=== PATIENT | male | born 1965 | race Caucasian/White ===

== ENCOUNTER 2016-09-12 17:22 | Emergency (ER) | payer OTHER ==
[~2016-09-12] VITALS: Ht 185.4 cm; Wt 108.5 kg
[~2016-09-12 17:22] MED LIST: ALBU1AER INH; HYDR-2768 PO; IBUP-232 PO; NEBUMIS6 INH; OMEP20TA39 PO
[2016-09-12 17:36] VITALS: BP 126/88; PULSE 78; RESP 16; TEMP 98.4; O2SAT 97
[2016-09-12] MEDS ORDERED: OMEP20TA PO (17:59)
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
[2016-09-12 18:49] VITALS: BP 139/86; PULSE 71; RESP 18; O2SAT 96
--- NOTE | 2016-09-12 19:38 | RADHPO ---
EXAM DATE/TIME: 09/12/2016 19:13 [facility] COMPARISON: No previous studies available for comparison. INDICATIONS : Left shoulder pain for 1 week from lifting injury MEDICAL HISTORY : None. SURGICAL HISTORY : None. ENCOUNTER: Initial ACUITY: 1 week PAIN SCORE: 7/10 LOCATION: Left entire shoulder FINDINGS: Two view examination of the left shoulder demonstrates no evidence of fracture or dislocation. The g lenohumeral and acromioclavicular joints are maintained. Bony mineralization is normal. CONCLUSION: No acute fracture. Keaton Whiting MD on September 12, 2016 at 19:36 Board Certified Radiologist. This report was verified electronically.
--- NOTE | 2016-09-12 19:39 | RADHPO ---
EXAM DATE/TIME: 09/12/2016 19:19 [facility] COMPARISON: No previous studies available for comparison. INDICATIONS : Left elbow pain for 1 week from lifting injury MEDICAL HISTORY : None. SURGICAL HISTORY : None. ENCOUNTER: Initial ACUITY: 1 week PAIN SCORE: 7/10 LOCATION: Left entire elbow FINDINGS: Two view examination of the left elbow demonstrates no soft tissue swelling, joint effusion, fracture or dislocation. Bony mineralization is normal. CONCLUSION: No acute fracture. Keaton Whiting MD on September 12, 2016 at 19:37 Board Certified Radiologist. This report was verified electronically.
[2016-09-12 20:08] VITALS: BP 135/81; PULSE 69; RESP 16; O2SAT 96
== END 2016-09-12 20:14 | disposition home or self-care (01) ==
LOC: PHED 17:22
DX: M79.602 Pain in left arm (principal); J44.9 Chronic obstructive pulmonary disease, unspecified; I10 Essential (primary) hypertension; F17.210 Nicotine dependence, cigarettes, uncomplicated
CPT/HCPCS: 73030; 73070; 99284

== ENCOUNTER 2017-11-23 20:59 | Emergency (ER) | payer SELFPAY ==
[~2017-11-23] VITALS: Ht 185.4 cm; Wt 107.6 kg
[~2017-11-23 20:59] MED LIST changes: -ALBU1AER INH; -HYDR-2768 PO; -IBUP-232 PO; -NEBUMIS6 INH; -OMEP20TA39 PO; +OMEP20TA93 PO
[2017-11-23 21:10] VITALS: BP 146/75; PULSE 80; RESP 18; TEMP 98.9; O2SAT 97
[2017-11-23] MEDS ORDERED: BACT800T5 PO (21:45)
[2017-11-23] MEDS ORDERED: CLINDAMYCIN 150 MG CAP PO ONE (21:45)
[2017-11-23] MEDS ORDERED: CLIN150C14 PO (21:45)
[2017-11-23] MEDS ORDERED: IBUPROFEN 800 MG TAB PO ONE (21:45)
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
== END 2017-11-23 21:52 | disposition home or self-care (01) ==
LOC: PHEFT 20:59
DX: L03.032 Cellulitis of left toe (principal); R50.9 Fever, unspecified; I10 Essential (primary) hypertension; K21.9 Gastro-esophageal reflux disease without esophagitis; E78.00 Pure hypercholesterolemia, unspecified; F17.200 Nicotine dependence, unspecified, uncomplicated; Z87.09 Personal history of other diseases of the respiratory system; Z86.59 Personal history of other mental and behavioral disorders; Z86.69 Personal history of other diseases of the nervous system and sense organs; Z87.39 Personal history of other diseases of the musculoskeletal system and connective tissue
CPT/HCPCS: 99284